=== PATIENT | female | born 1995 | race Caucasian/White ===

== ENCOUNTER 2023-01-13 08:21 | Inpatient (IN) | payer BC ==
[2023-01-20] MEDS ORDERED: Bupivacaine 0.25% HCL 30 ML VIAL ONE (08:00)
[2023-01-20 21:50] VITALS: BMI 27.2
[2023-01-20] MEDS ORDERED: Lidocaine 1% (PF) 30 ML VIAL SC PRN (22:45)
[2023-01-20] MEDS ORDERED: Oxytocin 30 units/NS 500 ML 500 ML IV SCH (22:45)
[2023-01-20] MEDS: Misoprostol 100 MCG TAB VAG SCH (22:58)
[2023-01-20 22:59] LABS: Hematocrit 31.9 % (34.9-44.5); Hemoglobin 11.3 g/dL (12.0-15.5); Mean Corpuscular HGB CONC 35.4 g/dL (32.0-36.0); Mean Corpuscular Hemoglobin 29.9 pg (27.0-33.0); Mean Corpuscular Volume 84.4 fl (81.6-98.3); Mean Platelet Volume 10.8 fl (7.4-10.4); Platelet Count 197 10x3/uL (150-450); RBC Distribution Width 13.1 % (11.5-14.5); Red Blood Cell (RBC) Count 3.78 10x6/uL (3.90-5.03); White Blood Cell (WBC) Count 11.1 10x3/uL (3.5-10.5)
[2023-01-20] MEDS ORDERED: Acetaminophen 500 MG TAB PO PRN (23:00)
[2023-01-20] MEDS ORDERED: Ondansetron PF 4 MG/2 ML Vial IVP PRN (23:00)
[2023-01-20] MEDS ORDERED: Oxytocin 30 units/NS 500 ML 500 ML IVPB SCH (23:00)
[2023-01-20] MEDS ORDERED: HYDROcodone/Acetaminophen 5/325 mg Tablet PO PRN ×2 (23:00)
[2023-01-20] MEDS ORDERED: Carboprost 250 MCG/ML AMP IM PRN (23:00)
[2023-01-20] MEDS ORDERED: Diphenoxylate HCl/Atropine Tablet PO PRN ×2 (23:00)
[2023-01-20] MEDS ORDERED: hydrALAZINE 20 MG/ML VIAL SLOW IVP PRN (23:00)
[2023-01-20] MEDS ORDERED: Methylergonovine 0.2 MG/ML VIAL IM PRN (23:00)
[2023-01-20] MEDS ORDERED: Ibuprofen 800 MG TAB PO PRN (23:00)
[2023-01-20] MEDS ORDERED: Promethazine HCl 25 MG/ML VIAL IM PRN (23:00)
[2023-01-20] MEDS ORDERED: Misoprostol 200 MCG TAB RC PRN (23:00)
[2023-01-20 23:07] LABS: Syphilis Antibody Nonreactive (Nonreactive); Syphilis Antibody Index 0.03 S/CO (<1.00 Non-Reactive)
[2023-01-20 23:08] LABS: HBSAg Index 0.82 S/CO (0-0.99); Hep B Surf Ag - L&D Non-Reactive S/CO (NonReactive)
[2023-01-21] MEDS ORDERED: fentaNYL/Ropivacaine Epidural 100 ML ONE (17:25)
[2023-01-21] MEDS ORDERED: Ondansetron PF 4 MG/2 ML Vial IVP PRN (18:09)
[2023-01-21] MEDS ORDERED: Promethazine HCl 25 MG/ML VIAL IM PRN (18:09)
[2023-01-21] MEDS ORDERED: Moisturizing Cream (Eucerin) 113 GM JAR TOP PRN (18:09)
[2023-01-21] MEDS ORDERED: ePHEDrine Sulfate 50 MG/10 ML VIAL SLOW IVP PRN (18:09)
[2023-01-21] MEDS ORDERED: Acetaminophen 325 MG TAB PO PRN (18:09)
[2023-01-21] MEDS ORDERED: diphenhydrAMINE 50 MG/ML VIAL IVP PRN (18:09)
[2023-01-21] MEDS ORDERED: Naloxone HCl 0.4 mg/ml Vial IVP PRN ×2 (18:09)
[2023-01-21] MEDS ORDERED: Lactated Ringer's 500 ML IV PRN (18:09)
[2023-01-21] MEDS ORDERED: fentaNYL 2 mcg/Ropivacaine 0.2% Epidural 100 ML CADD EPIDURAL SCH (18:15)
[2023-01-21] MEDS ORDERED: Communication Order-Pharmacy FS SCH (18:15)
[2023-01-21] MEDS: Lactated Ringer's 1,000 ML IV SCH (19:23)
[2023-01-22] MEDS ORDERED: Milk Of Magnesia 30 ML UDCUP PO PRN (03:17)
[2023-01-22] MEDS ORDERED: Ondansetron PF 4 MG/2 ML Vial IVP PRN (03:17)
[2023-01-22] MEDS ORDERED: Promethazine HCl 25 MG/ML VIAL IM PRN (03:17)
[2023-01-22] MEDS ORDERED: Bisacodyl 10 MG SUPP PR PRN (03:17)
[2023-01-22] MEDS ORDERED: Lanolin Ointment 7 GM TUBE TOP PRN (03:17)
[2023-01-22] MEDS ORDERED: diphenhydrAMINE 25 MG CAP PO PRN (03:17)
[2023-01-22] MEDS ORDERED: hydrALAZINE 20 MG/ML VIAL SLOW IVP PRN (03:17)
[2023-01-22] MEDS ORDERED: Boostrix 0.5 ML (Tdap) VIAL (>/=7 yrs of age) IM ONE (03:17)
[2023-01-22] MEDS ORDERED: Preparation H Ointment 28 GM TUBE PR PRN (03:17)
[2023-01-22] MEDS ORDERED: HYDROcodone/Acetaminophen 5/325 mg Tablet PO PRN ×2 (03:17)
[2023-01-22] MEDS ORDERED: Benzocaine-Menthol 82.5 ML CAN TOP PRN (03:17)
[2023-01-22 04:20] LABS: Hematocrit 30.7 % (34.9-44.5); Hemoglobin 10.7 g/dL (12.0-15.5); Mean Corpuscular HGB CONC 34.9 g/dL (32.0-36.0); Mean Corpuscular Hemoglobin 29.3 pg (27.0-33.0); Mean Corpuscular Volume 84.1 fl (81.6-98.3); Platelet Count 179 10x3/uL (150-450); RBC Distribution Width 12.9 % (11.5-14.5); Red Blood Cell (RBC) Count 3.65 10x6/uL (3.90-5.03); White Blood Cell (WBC) Count 20.1 10x3/uL (3.5-10.5)
[2023-01-22] MEDS: Ibuprofen 800 MG TAB PO SCH ×3 (04:40→22:03)
[2023-01-22] MEDS: Ferrous Sulfate 325 MG TAB PO SCH ×2 (07:14→17:07)
[2023-01-22] MEDS: Docusate 100 MG CAP PO SCH ×2 (08:38→22:05)
[2023-01-22] MEDS: Prenatal Vitamin 1 TAB PO SCH (08:38)
[2023-01-23] MEDS: Ibuprofen 800 MG TAB PO SCH ×2 (05:59→14:37)
[2023-01-23] MEDS: Lactated Ringer's 1,000 ML IV SCH ×2 (07:27→07:28)
[2023-01-23] MEDS: Misoprostol 100 MCG TAB VAG SCH ×2 (07:28→07:29)
[2023-01-23 07:57] VITALS: BP 105/62; TEMP 97.8
[2023-01-23] MEDS: Prenatal Vitamin 1 TAB PO SCH (08:28)
[2023-01-23] MEDS: Docusate 100 MG CAP PO SCH (08:28)
[2023-01-23] MEDS: Ferrous Sulfate 325 MG TAB PO SCH (09:03)
[2023-01-23] MEDS ORDERED: Measles/Mumps/Rubella 10 MCG/0.5 ML VIAL SC ONE (17:15)
== END 2023-01-23 17:35 | disposition home or self-care (01) | DRG 807 ==
LOC: CSHLD 01-20 21:22 → CSHPP 01-22 05:15
PROVIDERS: ADMIT Student in an Organized Health Care Education/Training Program; ATTEND Student in an Organized Health Care Education/Training Program
PROC: 10E0XZZ Delivery of Products of Conception, External Approach (ICD-10-PCS; principal; 2023-01-22)
PROC: 0HQ9XZZ Repair Perineum Skin, External Approach (ICD-10-PCS; 2023-01-22)
PROC: 10907ZC Drainage of Amniotic Fluid, Therapeutic from Products of Conception, Via Natural or Artificial Opening (ICD-10-PCS; 2023-01-22)
DX: O48.0 Post-term pregnancy (principal); Z37.0 Single live birth; Z3A.41 41 weeks gestation of pregnancy; O70.0 First degree perineal laceration during delivery; Z88.1 Allergy status to other antibiotic agents; Z88.2 Allergy status to sulfonamides
CPT/HCPCS: 36415; 51701; 51702; 85027; 86780; 86850; 86900; 86901; 87340; 90707; J2405; J2590; J7120; S0020

== ENCOUNTER 2024-11-10 09:52 | Inpatient (IN) | payer BC ==
[2024-11-17] MEDS ORDERED: Ondansetron PF 4 MG/2 ML Vial IVP PRN ×2 (06:37→18:39)
[2024-11-17] MEDS ORDERED: Ibuprofen 800 MG TAB PO PRN (06:37)
[2024-11-17] MEDS ORDERED: Lidocaine 1% (PF) 30 ML VIAL SC PRN (06:37)
[2024-11-17] MEDS ORDERED: Carboprost 250 MCG/ML AMP IM PRN (06:37)
[2024-11-17] MEDS ORDERED: hydrALAZINE 20 MG/ML VIAL SLOW IVP PRN ×2 (06:37→18:39)
[2024-11-17] MEDS ORDERED: Diphenoxylate HCl/Atropine Tablet PO PRN (06:37)
[2024-11-17] MEDS ORDERED: Methylergonovine 0.2 MG/ML VIAL IM PRN (06:37)
[2024-11-17] MEDS ORDERED: Acetaminophen 500 MG TAB PO PRN (06:37)
[2024-11-17] MEDS ORDERED: HYDROcodone/Acetaminophen 5/325 mg Tablet PO PRN ×3 (06:37→18:39)
[2024-11-17] MEDS ORDERED: Oxytocin 30 units/NS 500 ML 500 ML IV SCH (06:45)
[2024-11-17 07:04] LABS: Hematocrit 33.8 % (34.9-44.5); Hemoglobin 11.5 g/dL (12.0-15.5); Mean Corpuscular Hemoglobin 28.8 pg (27.0-33.0); Mean Corpuscular Volume 84.5 fL (81.6-98.3); Platelet Count 201 10x3/uL (150-450); Red Blood Cell (RBC) Count 4.00 10x6/uL (3.90-5.03); White Blood Cell (WBC) Count 10.59 10x3/uL (3.5-10.5)
[2024-11-17 07:36] LABS: Syphilis Antibody Index 0.05 S/CO (<1.00 Non-Reactive)
[2024-11-17 07:37] LABS: Hep B Surf Ag - L&D Non-Reactive S/CO (NonReactive)
[2024-11-17] MEDS ORDERED: Bupivacaine 0.25% HCL 30 ML VIAL ONE (08:00)
[2024-11-17] MEDS: Oxytocin 30 units/NS 500 ML 500 ML IV SCH (08:20)
[2024-11-17] MEDS ORDERED: fentaNYL/Ropivacaine Epidural 100 ML ONE (13:57)
[2024-11-17 14:57] VITALS: BMI 28.8
[2024-11-17] MEDS ORDERED: Acetaminophen 325 MG TAB PO PRN (15:05)
[2024-11-17] MEDS ORDERED: diphenhydrAMINE 50 MG/ML VIAL IVP PRN (15:05)
[2024-11-17] MEDS ORDERED: fentaNYL 2 mcg/Ropivacaine 0.2% Epidural 100 ML CADD EPIDURAL SCH (15:15)
[2024-11-17] MEDS ORDERED: Communication Order-Pharmacy FS SCH (15:15)
[2024-11-17] MEDS: Ondansetron PF 4 MG/2 ML Vial IVP PRN (15:45)
[2024-11-17] MEDS ORDERED: Milk Of Magnesia 30 ML UDCUP PO PRN (18:39)
[2024-11-17] MEDS ORDERED: Lanolin Ointment 7 GM TUBE TOP PRN (18:39)
[2024-11-17] MEDS ORDERED: diphenhydrAMINE 25 MG CAP PO PRN (18:39)
[2024-11-17] MEDS ORDERED: Benzocaine-Menthol 82.5 ML CAN TOP PRN (18:39)
[2024-11-17] MEDS ORDERED: Bisacodyl 10 MG SUPP PR PRN (18:39)
[2024-11-17] MEDS ORDERED: Preparation H Ointment 28 GM TUBE PR PRN (18:39)
[2024-11-17] MEDS ORDERED: Boostrix 0.5 ML (Tdap) VIAL (>/=7 yrs of age) IM ONE (18:39)
[2024-11-17] MEDS: Ibuprofen 800 MG TAB PO SCH (21:37)
[2024-11-17] MEDS: Ferrous Sulfate 325 MG TAB PO SCH (21:37)
[2024-11-18] MEDS: Ferrous Sulfate 325 MG TAB PO SCH (15:15)
[2024-11-18 16:05] VITALS: BP 105/63; TEMP 98.1
== END 2024-11-18 18:30 | disposition home or self-care (01) | DRG 807 ==
LOC: CSHLD 11-17 05:47 → CSHPP 11-17 18:27
PROVIDERS: ADMIT Student in an Organized Health Care Education/Training Program; ATTEND Student in an Organized Health Care Education/Training Program
PROC: 10907ZC Drainage of Amniotic Fluid, Therapeutic from Products of Conception, Via Natural or Artificial Opening (ICD-10-PCS; principal; 2024-11-17)
PROC: 10E0XZZ Delivery of Products of Conception, External Approach (ICD-10-PCS; 2024-11-17)
DX: O48.0 Post-term pregnancy (principal); Z37.0 Single live birth; Z3A.41 41 weeks gestation of pregnancy; Z88.1 Allergy status to other antibiotic agents
CPT/HCPCS: 51702; 85027; 86780; 86850; 86900; 86901; 87340; J0665; J2590; J7120